=== PATIENT | female | born 1950 | race Caucasian/White ===

== ENCOUNTER 2023-01-30 13:46 | Emergency (ER) | payer MEDICARE, MEDICAID ==
[~2023-01-30] VITALS: Ht 154.9 cm; Wt 97.1 kg
[~2023-01-30 13:46] MED LIST: DOXY-8 PO; HYDR-3965 PO
[2023-01-30 14:21] LABS: BASOPHILS # (AUTO) 0.1 X10'3 (0-0.2); BASOPHILS % (AUTO) 0.9 % (0-1); EOSINOPHILS # (AUTO) 0.2 X10'3 (0-0.9); EOSINOPHILS % (AUTO) 1.8 % (0-6); HEMATOCRIT 43.2 % (35.0-45.0); LYMPHOCYTES # (AUTO) 2.1 X10'3 (1.1-4.8); LYMPHOCYTES % (AUTO) 25.4 % (21-51); MEAN CORPUSCULAR HEMOGLOBIN 27.9 PG (27.0-31.0); MEAN CORPUSCULAR HGB CONC 32.4 g/dL (33.0-36.5); MEAN CORPUSCULAR VOLUME 86.2 FL (78-98); MEAN PLATELET VOLUME 9.7 FL (7.4-10.4); MONOCYTES # (AUTO) 0.8 X10'3 (0-0.9); MONOCYTES % (AUTO) 10.1 % (2-12); NEUTROPHILS # (AUTO) 5.1 X10'3 (1.8-7.7); NEUTROPHILS % (AUTO) 61.8 % (42-75); PLATELET COUNT 271 X10'3 (140-440); RED BLOOD COUNT 5.01 X10'6 (4.20-5.60); RED CELL DISTRIBUTION WIDTH 13.4 % (11.5-14.5); WHITE BLOOD COUNT 8.3 X10'3 (4.5-11.0)
[2023-01-30 14:38] LABS: ALANINE AMINOTRANSFERASE 18 U/L (12-78); ALBUMIN 3.9 G/DL (3.4-5.0); ALKALINE PHOSPHATASE 94 IU/L (46-116); ANION GAP 10 (8-16); ASPARTATE AMINO TRANSFERASE 20 U/L (10-37); BILIRUBIN,TOTAL 0.3 MG/DL (0.1-1.0); BLOOD UREA NITROGEN 27 MG/DL (7-18); BUN/CREATININE RATIO 33.3 (10.0-20.0); CALCIUM 9.8 MG/DL (8.5-10.1); CHLORIDE 99 MMOL/L (99-107); CREATININE 0.81 MG/DL (0.40-0.90); GLUCOSE 94 MG/DL (70-104); POTASSIUM 4.5 MMOL/L (3.5-5.1); SODIUM 135 MMOL/L (135-145); TOTAL CARBON DIOXIDE 26.2 MMOL/L (24-32); TOTAL PROTEIN 7.7 G/DL (6.4-8.2); eCRCL 48 ML/MIN; eGFR 70 ML/MIN
[2023-01-30 14:46] LABS: PRO BRAIN NATRIURETIC PEPTIDE 30 PG/ML (0-125)
[2023-01-30 18:32] VITALS: TEMP 97.9
[2023-01-30 22:03] LABS: D-DIMER 1.82 MG/L FEU (0-0.50)
[2023-01-30] MEDS ORDERED: iohexol 350MG/ML 100ml bottle IV ONE (22:11)
[2023-01-30 23:24] VITALS: BP 133/86; PULSE 66; RESP 17; O2SAT 98
== END 2023-01-30 23:26 | disposition home or self-care (01) ==
LOC: ER 13:46
DX: R91.1 Solitary pulmonary nodule (principal)
CPT/HCPCS: 36415; 71045; 71275; 80053; 83880; 84484; 85025; 85379; 93005; 99285; J3490; Q9967